=== PATIENT | female | born 1990 | race Caucasian/White ===

== ENCOUNTER 2023-08-17 15:00 | Outpatient (CLI) | payer MEDICAID, SELFPAY ==
[2023-08-17 20:23] LABS: Bacterial Vaginosis* Negative (Negative); Candida glab/krus NOT DETECTED (No Detected); Candida species NOT DETECTED (No Detected); Trichomonas vaginalis NOT DETECTED (No Detected)
== END 2023-08-17 15:01 | disposition home or self-care (01) ==
PROVIDERS: PCP Family Medicine; Visit Provider Obstetrics & Gynecology
DX: R10.2 Pelvic and perineal pain (principal)
CPT/HCPCS: 81513; 87086; 87481; 87661

== ENCOUNTER 2023-10-05 14:50 | Outpatient (CLI) | payer MEDICAID, SELFPAY ==
--- OUTSIDE RECORDS SUMMARY | 2023-10-05 14:55 | XMS_ITS | Clinical Summary ---
Author Name Unknown Organization [facility] Address [address] [place] [address] Care Team Providers Care Cocoa Press Operator Name Role Phone Unavailable Primary Care Provider Unavailabl e Source Comments You are receiving this document as you are listed as the primary care provider,follow-up provider, or the patient has been referred to you for consultation.This is in compliance with the Medicare andMedicaid EHR Incentive Program,which states Providers who transition their patient to another setting of careor provider of care or refers their patient to another provider of care shouldprovide summary care record for each transition of care or referral. [facility] Allergies No known active allergies Medications No known medications Social History Tobacco Use Types Packs/Day Years Used Date Smoking Tobacco: Never Smokeless Tobacco: Never Sex and Gender Information Value Date Recorded Sex Assigned at Not on file Gender Identity Not on file Sexual Orientation Not on file Last Filed Vital Signs Vital Sign Reading Time Taken Comments Blood Pressure 106/52 11/04/2020 6:32 PM CDT Pulse 75 11/04/2020 6:32 PM CDT Temperature 37.2 ??C (98.9 ??F) 11/04/2020 6:32 PM CD T Respiratory Rate 12 11/04/2020 6:32 PM CDT Oxygen Saturation 100% 11/04/2020 6:32 PM CDT Inhaled Oxygen Concentration - - Weight - - Height - - Body Mass Index - - Plan of Treatment Health Maintenance Due Date Last Done Comments Cervical Cancer Screening Due 1992 Hep C Screening (Preventive Services) 1992 HIV Screening (Preventive Services) 2008 Adult Preventive Visit 2010 HepB (1) 2011 COVID-19 Vaccine (3 - 2022-2 4 season) 2023 10/19/2020, 09/28/2020 Influenza (Season Ended) 2024 DTaP/Tdap/Td (2 - Tdap) 04/27/2031 04/27/2021 Zoster/Shingles (1 of 2) 2042 HPV Vaccine Aged Out No longer eligi ble based on patient's age to complete this topic HepA Aged Out No longer eligi ble based on patient's age to complete this topic Hib Aged Out No longer eligi ble based on patient's age to complete this topic IPV (Polio) Aged Out No longer eligi ble based on patient's age to complete this topic MCV4 Aged Out No longer eligi ble based on patient's age to complete this topic Pneumococcal Aged Out No longer eligi ble based on patient's age to complete this topic
== END 2023-10-05 14:51 | disposition home or self-care (01) ==
LOC: NFLDREF 14:53
PROVIDERS: PCP Family Medicine; Visit Provider Obstetrics & Gynecology
DX: R31.9 Hematuria, unspecified (principal)
CPT/HCPCS: 87086

== ENCOUNTER 2023-10-16 15:20 | Outpatient (CLI) | payer MEDICAID, SELFPAY ==
--- OUTSIDE RECORDS SUMMARY | 2023-10-16 15:22 | XMS_ITS | Clinical Summary ---
Author Name Unknown Organization [facility] Address [address], [place] [address] Care Team Providers Care Medical Affairs Specialist Name Role Phone Unavailable Primary Care Provider [...]
== END 2023-10-16 15:21 | disposition home or self-care (01) ==
LOC: NFLDREF 15:20
PROVIDERS: PCP Family Medicine; Visit Provider Obstetrics & Gynecology
DX: R30.0 Dysuria (principal)
CPT/HCPCS: 87086; 87186

== ENCOUNTER 2023-12-25 09:04 | Outpatient (CLI) | payer MEDICAID, SELFPAY ==
--- OUTSIDE RECORDS SUMMARY | 2023-12-25 09:06 | XMS_ITS | Clinical Summary ---
Author Organization [facility] Address [address] [place] [id number] Care Team Providers Care Processing Analyst Name Role Phone Unavailable Primary Care Provider [...] for each transition of care or referral. [facility] All[facility] No known active allergies Medications No [...] 2022-2 4 season) 2023 10/19/2020, 09/28/2020 Influenza (#1) 2024 DTaP/Tdap/Td (2 - Tdap) 04/27/2031 04/27/2021 [...]
[2023-12-25 12:38] LABS: Chlamydia DNA Amplified* NOT DETECTED (No Detected); GC DNA Amplified* NOT DETECTED (No Detected)
== END 2023-12-25 09:05 | disposition home or self-care (01) ==
PROVIDERS: PCP Family Medicine; Visit Provider Obstetrics & Gynecology
DX: B99.9 Unspecified infectious disease (principal)
CPT/HCPCS: 87491; 87591

== ENCOUNTER 2024-01-30 10:30 | Outpatient (CLI) | payer MEDICAID, SELFPAY ==
--- OUTSIDE RECORDS SUMMARY | 2024-02-14 13:29 | XMS_ITS | Clinical Summary ---
Author Organization [employer] [facility] Address [place], [place] [address] Care Team Providers Care Director Television [employer] Name Role Phone John Paul Peterson MD Primary Care Provider + Allergies No known active allergies Medications Medication Sig Dispensed Refills Start Date End Date Status FREESTYLE TEST strip USE TO TEST BLOOD SUGAR QID DIRECTED 02/17/2020 Active vit 28/iron fum/folic (multivitamin folic acid 1 mg)Indications:Dolores stfeeding () Take 1 Tablet by mouth once daily. 30 tablet. 11/15/2020 Active acetaminophen (TYLENOL EXTRA STRGTH) 500 mg tabletIndications:C esarean delivery delivered Take 2 Tablets (1,000 mg) by mouth every 6 hours. Max acetaminophen dose: 4000mg in 24 hrs. 30 Tablet 07/10/2021 Active ibuprofen (ADVIL; MOTRIN) 600 mg tabletIndications:C esarean delivery delivered Take 1 Tablet (600 mg) by mouth every 6 hours. Maximum of 3200 mg in 24 hours. 30 Tablet 07/10/2021 Active 28 mg iron- 800 mcg tab Take 1 Tablet by mouth once daily. 09/13/2021 Active albuterol HFA (PRO-AIR; VENTOLIN; PROVENTIL) 90 mcg/actuation inhalerIndications: Cough, unspecified type Inhale 1-2 Puffs by mouth every 4 hours if needed (cough). 1 Each 03/12/2022 Active dextromethorphan polistirex 30 mg in 5 ml (DELSYM) 30 mg/5 mL liquidIndications:C ough, unspecified type Take 5 mL (30 mg) by mouth every 12 hours if needed for Cough. 150 mL 03/12/2022 Active drospirenone-ethiny l estradioL (HAJA) 3-0.03 mg tablet Take 1 Tablet by mouth once daily. 06/22/2023 Active metFORMIN (GLUCOPHAGE XR) 500 mg Extended-Release tablet 07/12/2023 Active phentermine (ADIPEX-P) 37.5 mg tablet TAKE 1 TABLET(37.5 MG) BY MOUTH EVERY MORNING BEFORE BREAKFAST 07/20/2023 Active ondansetron (ZOFRAN ODT) 4 mg disintegrating tabletIndications:N ausea Place 1 Tablet (4 mg) on the tongue every 8 hours if needed for Nausea/Vomiting. 20 Tablet 07/28/2023 Active fluconazole (DIFLUCAN) 150 mg tabletIndications:Y east infection Take 1 tablet by mouth for 1 dose. May repeat dose in 3 days if symptoms not improving. 2 Tablet 12/24/2023 Active cefadroxil (DURICEF) 500 mg capsuleIndications: Urinary tract infection with hematuria, site unspecified Take 2 Capsules (1,000 mg) by mouth two times daily for 10 days. 40 Capsule 01/11/2024 Active Problems Problem Noted Date Diagnosed Date Gestational diabetes 07/10/2021 delivery delivered 09/13/2019 38 weeks gestation of 09/03/2019 Overview (11/15/2020): Added automatically from request for surgery [id number] Encounters Date Type Department Care Team Description 01/30/2024 Lab Requisition [facility] [phone] Nicolle Ashton MD 01/11/2024 7:47 AM CDT - 01/11/2024 8:51 [place] [address] Christiano Tay MD Urinary tract infection with hematuria, site unspecified (Primary Dx); Suprapubic abdominal pain; Acute bilateral low back pain without sciatica; Dysuria Discharge Disposition: Home Self Care 01/11/2024 Travel 12/26/2023 1:09 AM CDT - 12/26/2023 4:38 AM CDT Emergency [facility] [address] [place] [address] Katiana Evans MD Enteritis (Primary Dx); Abdominal pain, unspecified abdominal location Discharge Disposition: Home Self Care 12/26/2023 Travel 12/24/2023 7:54 AM CDT - 12/24/2023 9:34 AM CDT Emergency [facility] [address] [place] [address] Mikala Chen DO Acute cystitis with hematuria (Primary Dx); Vaginal discharge Discharge Disposition: Home Self Care 12/24/2023 Telephone [facility] [address] [place] [address] Zuleyma Lyman, Formerly [facility] Abnormal Lab Results 12/24/2023 Travel 11/21/2023 9:47 AM CDT - 11/21/2023 11:14 AM CDT Emergency [facility] [address] [place] [address] Kehinde Almonte MD Acute vaginitis (Primary Dx) Discharge Disposition: Home Self Care 11/21/2023 Travel from Last 3 Months Immunizations Name Administration Dates Next Due COVID-19 vaccine ([employer] 30mcg/0.3mL) P F, V 09/28/2020 Family History Relation Name Status Comments Father Alive Mother Alive Social History Tobacco Use Types Packs/Day Years Used Date Smoking Tobacco: Former Smokeless Tobacco: Never Tobacco Cessation:Counseling Given: Yes Alcohol Use Standard Drinks/Week Comments Never 0 (1 standard drink = 0.6 oz pur e alcohol) Sex and Gender Information Value Date Recorded Sex Assigned at Not on file Gender Identity Not on file Sexual Orientation Not on file Obstetrics History Para Term AB IAB SAB Ectopic Multiple Livin g Live Births 2 2 2 0 2 2 Date Outcome GA Total Labor Labor/2nd/3rd Weight Sex Type Anes PTL Rissa A1 A5 Name Clin 2019 Term Livin g 2021 Term 38w 3d 0h 07m 0h 07m 3.08 kg (6 lb 12.6 oz) F C-Sec tion Spinal Livin g 10 10 BG MINI SETH Justi n Carly le, MD Complications:None Delivery Location:Hospital ( [facility] (OR)) Last Filed Vital Signs Vital Sign Reading Time Taken Comments Blood Pressure 108/65 01/11/2024 7:52 AM CDT Pulse 84 01/11/2024 7:52 AM CDT Temperature 37 ??C (98.6 ??F) 01/11/2024 7:52 AM CDT Respiratory Rate 18 01/11/2024 7:52 AM CDT Oxygen Saturation 98% 01/11/2024 7:52 AM CDT Inhaled Oxygen Concentration - - Weight 58.5 kg (129 lb) 01/11/2024 7:52 AM CDT Height 160 cm (5' 3) 01/11/2024 7:52 AM CDT Body Mass Index 22.85 01/11/2024 7:52 AM CDT Plan of Treatment Health Maintenance Due Date Last Done Comments Tdap 2003 Depression screening for age 12+ 2004 BMI (ht and wt on same day) for age 18+ 2010 Hepatitis C screening for ag e 18-79 2010 Tetanus booster 2012 COVID-19 vaccine series (2022- season) 2024 10/19/2020, 09/28/2020 Influenza for age 9-49 01/27/2024 Pap test for age 21-65 01/29/2027 , 01/30/2024 HIV for age 15-65 Completed 12/01/2020 Pneumococcal series for age 6-64 Aged Out No longer eligible b ased on patient's age to complete this topic Procedures Procedure Name Priority Date/Time Associated Diagnosis Comments LAB TRACKING EVENT Routine 01/30/2024 10 :30 AM CDT EXPORT SALES MANAGER THIN PREP PAP SCREEN IMAGED Routine 01/30/2024 10:30 AM CDT HPV HIGH RISK Routine 01/30/2024 10:30 AM CDT URINE ASHIA 01/11/2024 7:56 AM CDT URINALYSIS MICROSCOPIC STAT 01/11/2024 7:56 AM CDT UA W/ SEDIMENT EXAM REFLEXED PER CRITERIA STAT 01/11/2024 7:56 AM CDT LACTATE VENOUS Today 12/26/2023 3:[address] ABDOMEN PELVIS W STAT 12/26/2023 3 :23 AM CDT C-REACTIVE PROTEIN ASHIA 12/26/2023 2: 53 AM CDT LIPASE STAT 12/26/2023 2:53 AM CDT HEPATIC FUNCTION PANEL STAT 12/26/2023 2:53 AM CDT BASIC METABOLIC PANEL STAT 12/26/2023 2:53 AM CDT CBC W PLT NO DIFF STAT 12/26/2023 2:5 3 AM CDT TRICHOMONAS, KODAK, AND BACTERIAL VAGINOSIS BY DOREEN STAT 12/24/2023 8:47 AM CDT URINE CULTURE ASHIA 12/24/2023 8:12 AM CDT URINE ASHIA 12/24/2023 8:12 AM CDT URINALYSIS MICROSCOPIC STAT 12/24/2023 8:12 AM CDT UA W/ SEDIMENT EXAM REFLEXED PER CRITERIA STAT 12/24/2023 8:12 AM CDT GC CHLAMYDIA TRACH PROBE STAT 11/21/2023 10:26 AM CDT URINALYSIS MICROSCOPIC STAT 11/21/2023 9:51 AM CDT URINE ASHIA 11/21/2023 9:51 AM CDT UA W/ SEDIMENT EXAM REFLEXED PER CRITERIA STAT 11/21/2023 9:51 AM CDT HIV EXTERNAL Routine 12/01/2020 from Last 3 Months or Most Recently Relevant to Health Maintenance Results * LAB TRACKING EVENT (01/30/2024 10:30 AM CDT) Other (Other) Client Collect / Unknown 01/30/2024 10:30 AM CDT 01/30/2024 5:17 PM CDT Nicolle Ashton MD LAB BILL ONLY [facility] [address] [place] [address], * (ABNORMAL) EXPORT SALES MANAGER THIN PREP PAP SCREEN IMAGED (01/30/2024 10:30 AM CDT) Case Report Gynecologic Cytology Report ? Case: [id number] ? Authorizing Provider: ??Nicolle Ashton MD ??Collected: ? 01/30/2024 1030 ? Ordering Location: ? [facility] ?Received: ?02/01/2024 1706 ? First Screen: ?David, Antelmo ? Pathologist: ? Miracle Moreau MD ? Specimen: ?EXPORT SALES MANAGER ThinPrep Vial Screening, Cervical ? 02/13/2024 5:30 PM CDT [facility] INTERPRETATION/ RESULT ATYPICAL SQUAMOUS CELLS OF UNDETERMINED SIGNIFICANCE (ASCUS)(A) (none) 02/13/2024 5:30 PM CDT [facility] IMEN ADEQUACY Satisfactory for evaluation Endocervical component present 02/13/2024 5:30 PM CDT [facility] HPV REQUEST HPV and PAP 02/13/2024 5:30 PM CDT [facility] Date of LMP 01/25/2024 02/13/2024 5:30 PM CDT [facility] Last Pap Date 12/20/2023 02/13/2024 5:30 PM CDT [facility] Last Pap Result ASCUS 5:30 PM CDT [facility] Abnormal Pap or [place] Bx in last 5 years Yes 02/13/2024 5:30 PM CDT [facility] Menstrual Status Regular Periods 02/13/2024 5:30 PM CDT [facility] [place] Bx Done Today No 02/13/2024 5:30 PM CDT [facility] Additional Information 02/13/2024 5:30 PM CDT [facility] Comment: Interpreted at [facility] - [address], [place] [address] Automated Review Successful 02/13/2024 5:30 PM CDT [facility] Comment:Specimen processed s uccessfully by automated filter machine operator device, ThinPrep Imaging System, [employer] ANCILLARY TESTING EXPORT SALES MANAGER HPV Ordered, Please see separate report 02/13/2024 5:30 PM CDT [facility] Note The pap test is a screening technique, not a diagnostic procedure. It is used primarily to screen for squamous cancers and precursor lesions. Published studies have shown that it is subject to both false negative and false positive results. The pap test should not be used as the sole means to diagnose or exclude pre-malignant and malignant lesions. 02/13/2024 5:30 PM CDT [facility] Other (Cervical) 01/30/2024 10:30 AM CDT 02/01/2024 5:06 PM CDT Nicolle Ashton MD PATHOLOGY/CYTOLO GY Performing Organization Address [facility]/ZIP Co de Phone Number [facility] [address] [place] [address], * (ABNORMAL) HPV HIGH RISK (01/30/2024 10:30 AM CDT) TYPE 16 Negative Negative 02/05/2024 11:26 AM CDT [facility] TYPE 18 Negative Negative 02/05/2024 11:26 AM CDT [facility] OTHER HIGH RISK TYPES Positive(A) Negative 02/05/2024 11:26 AM CDT [facility] Other (Cervical) 01/30/2024 10:30 AM CDT 02/01/2024 5:06 PM CDT Narrative [facility] - 02/05/2024 11:26 AM CDT Specimen is positive for the DNA of any one of, or combination of, the following high risk HPV types: 31, 33, 35, 39, 45, 51, 52, 56, 58, 59, 66, 68. HPV types 16 and 18 DNA were undetectable or below the pre-set threshold. ? Methodology: Hailo Sandro 4800 HPV Test Nicolle Ashton MD MICROBIOLOGY [facility] [address] [place] [address], * (ABNORMAL) URINALYSIS MICROSCOPIC (01/11/2024 7:56 AM CDT) Only the most recent of3 resultswithin the time period is included. RBC >100(A) 0-2, None Seen /HPF 01/11/2024 8:20 AM T [facility] WBC 51-100(A) 0-2, 3-5, None Seen /HPF 01/11/2024 8:20 AM [facility] BACTERIA Few None Seen, Rare, Few Bacteria/ HPF 01/11/2024 8:20 AM [facility] EPITHELIAL CELLS Few None Seen, Few Epi/HPF 01/11/2024 8:20 AM [facility] Mucus Present 01/11/2024 8:20 AM [facility] Urine URINE SPECIMEN / Unknown Non-Blood / Unknown 01/11/2024 7:56 AM CDT 01/11/2024 7:59 AM CDT Spencer Cat MD URINE [facility] [address] [place] [address] [id number] * (ABNORMAL) UA W/ SEDIMENT EXAM REFLEXED PER CRITERIA (01/11/2024 7:56 AM CDT) Only the most recent of3 resultswithin the time period is included. COLOR Yellow Yellow Color 01/11/2024 8:19 AM T [facility] CLARITY Turbid(A) Clear Clarity 01/11/2024 8:19 AM [facility] SPECIFIC GRAVITY,URINE 1.025 1.010, 1.015, 1.020, 1.025 01/11/2024 8:19 AM [facility] PH,URINE 6.5 6.0, 7.0, 8.0, 5.5, 6.5, 7.5, 8.5 01/11/2024 8:19 AM CDT [facility] UROBILINOGEN, QUALITATIVE Normal Normal EU/dl 01/11/2024 8:19 AM [facility] PROTEIN, URINE 100(A) Negative mg/dL 01/11/2024 8:19 AM T [facility] GLUCOSE, URINE Negative Negative mg/dL 01/11/2024 8:19 AM [facility] KETONES,URINE Negative Negative mg/dL 01/11/2024 8:19 AM T [facility] BILIRUBIN,URI NE Negative Negative 01/11/2024 8:19 AM [facility] OCCULT BLOOD,URINE Large(A) Negative 01/11/2024 8:19 AM [facility] NITRITE Negative Negative 01/11/2024 8:19 AM [facility] LEUKOCYTE ESTERASE Moderate(A) Negative 01/11/2024 8:19 AM [facility] Urine URINE SPECIMEN / Unknown Non-Blood / Unknown 01/11/2024 7:56 AM CDT 01/11/2024 7:59 AM CDT Spencer Cat MD URINE [facility] [address] [place] [address] * URINE (01/11/2024 7:56 AM CDT) Only the most recent of3 resultswithin the time period is included. ,URIN E Negative Negative 01/11/2024 8:32 AM T [facility] Urine URINE SPECIMEN / Unknown Non-Blood / Unknown 01/11/2024 7:56 AM CDT 01/11/2024 7:59 AM CDT Christiano Tay MD URINE [facility] [address] [place] [address] * LACTATE VENOUS (12/26/2023 3:52 AM CDT) LACTATE,VENOUS 0.9 0.5 - 2.0 mmol/L 12/26/2023 4:13 AM CDT [facility] Blood BLOOD SPECIMEN / Unknown Venipuncture / Unknown 12/26/2023 3:52 AM CDT 12/26/2023 3:55 AM CDT Katiana Evans MD CHEMISTRY [facility] [address] [place] [address] * CT ABDOMEN PELVIS W (12/26/2023 3:23 AM CDT) Anatomical Region Laterality Modality Abdomen, Pelvis, AORTA, LIVER, SPLEEN Computed Tomography 12/26/2023 3:40 AM CDT Narrative 12/26/2023 3:40 AM CDT For Patients: ??As a result of the Century Cures Act, medical imaging exams and procedure reports are released immediately into your electronic medical record. ??You may view this report before your referring provider. ??If you have questions, please contact your health care provider. INDICATION: Abdominal pain TECHNIQUE: CT Abdomen and pelvis with i.v. contrast. Coronal and sagittal reformats were obtained. CONTRAST: 100 mL Omnipaque 300 COMPARISON: 08/02/2023 FINDINGS: Lower chest: Unremarkable. Liver: A small hypodense lesion is present within the right anterior segment of the liver measuring 1 cm. It has a small central focus of increased density. Spleen: Unremarkable. Pancreas: Unremarkable. Gallbladder: Unremarkable. Kidney: There is a cyst in the upper pole of the right kidney measuring 1.2 cm. Adrenal: Unremarkable. Bowel: Moderate concentric wall thickening with target enhancement is seen within the small bowel loops in the midabdomen. The appendix is normal in appearance and size. Vascular: There is normal enhancement of the celiac, SMA and ADRIAN. The SMV and portal vein are unremarkable. Lymph: Numerous small subcentimeter mesenteric lymph nodes are present. Peritoneum: Unremarkable. No pneumoperitoneum is seen. A small amount of abdominal ascites is noted. Pelvis: Unremarkable. Soft tissue: Unremarkable. Bone: Unremarkable for age. IMPRESSIONS: 1. Moderate concentric wall thickening with target enhancement is seen within the small bowel loops in the midabdomen. The appearance is nonspecific and can be seen in a number of conditions including inflammatory bowel disease, infectious enteritis, vasculitis or DARIUS inhibitor related angioedema. Small-bowel ischemia can be considered in the appropriate clinical context. 2. A small amount of abdominal ascites is noted. 3. A small hypodense lesion is present within the right anterior segment of the liver measuring 1 cm. It has a small central focus of increased density. This may represent a small hemangioma but confirmation with MRI evaluation is recommended especially if the patient has a history of chronic liver disease or primary malignancy. Dictated by Austin Ernandez MD @ 12/26/2023 3:40:42 AM Please note that all CT scans at this facility use dose modulation, iterative reconstruction, and/or weight-based dosing when appropriate to reduce radiation dose to as low as reasonably achievable. Dictated by: Austin Ernandez MD @ 12/26/2023 03:40:49 (Electronically Signed) Procedure Note Austin Ernandez MD - 12/26/2023 For Patients: As a result of the Century Cures Act, medical imagingexams and procedure reports are released immediately into your electronicmedical record. You may view this report before your referring provider.If you have questions, please contact your health care provider. INDICATION: Abdominal pain TECHNIQUE: CT Abdomen and pelvis with i.v. contrast. Coronal and sagittalreformats were obtained. CONTRAST: 100 mL Omnipaque 300 COMPARISON: 08/02/2023 FINDINGS: Lower chest: Unremarkable. Liver: A small hypodense lesion is present within the right anteriorsegment of the liver measuring 1 cm. It has a small central focus ofincreased density. Spleen: Unremarkable. Pancreas: Unremarkable. Gallbladder: Unremarkable. Kidney: There is a cyst in the upper pole of the right kidney measuring1.2 cm. Adrenal: Unremarkable. Bowel: Moderate concentric wall thickening with target enhancement is seenwithin the small bowel loops in the midabdomen. The appendix is normal inappearance and size. Vascular: There is normal enhancement of the celiac, SMA and ADRIAN. The SMVand portal vein are unremarkable. Lymph: Numerous small subcentimeter mesenteric lymph nodes are present. Peritoneum: Unremarkable. No pneumoperitoneum is seen. A small amount ofabdominal ascites is noted. Pelvis: Unremarkable. Soft tissue: Unremarkable. Bone: Unremarkable for age. IMPRESSIONS: 1. Moderate concentric wall thickening with target enhancement is seenwithin the small bowel loops in the midabdomen. The appearance isnonspecific and can be seen in a number of conditions includinginflammatory bowel disease, infectious enteritis, vasculitis or ACEinhibitor related angioedema. Small-bowel ischemia can be considered inthe appropriate clinical context. 2. A small amount of abdominal ascites is noted. 3. A small hypodense lesion is present within the right anterior segmentof the liver measuring 1 cm. It has a small central focus of increaseddensity. This may represent a small hemangioma but confirmation with MRIevaluation is recommended especially if the patient has a history ofchronic liver disease or primary malignancy. Dictated by Austin Ernandez MD @ 12/26/2023 3:40:42 AM Please note that all CT scans at this facility use dose modulation,iterative reconstruction, and/or weight-based dosing when appropriate toreduce radiation dose to as low as reasonably achievable. Dictated by: Austin Ernandez MD @ 12/26/2023 03:40:49 (Electronically Signed) Katiana Evans MD CT * CBC W PLT NO DIFF (12/26/2023 2:53 AM CDT) WHITE BLOOD COUNT 10.2 4.5 - 11.0 thou/cu mm 12/26/2023 2:59 AM CDT [facility] RED BLOOD COUNT 4.35 4.00 - 5.20 mil/cu mm 12/26/2023 2:59 AM CDT [facility] HEMOGLOBIN 13.0 12.0 - 16.0 g/dL 12/26/2023 2:59 AM CDT [facility] HEMATOCRIT 38.8 33.0 - 51.0 % 12/26/2023 2:59 AM [facility] MCV 89 80 - 100 fL 12/26/2023 2:59 AM T [facility] MCH 29.9 26.0 - 34.0 pg 12/26/2023 2:59 AM [facility] MCHC 33.5 32.0 - 36.0 g/dL 12/26/2023 2:59 AM CDT [facility] RDW 13.4 11.5 - 15.5 % 12/26/2023 2:59 AM CDT [facility] PLATELET COUNT 257 140 - 440 thou/cu mm 12/26/2023 2:59 AM CDT [facility] MPV 10.7 6.5 - 11.0 fL 12/26/2023 2:59 AM CDT [facility] Blood BLOOD SPECIMEN / Unknown Venipuncture / Unknown 12/26/2023 2:53 AM CDT 12/26/2023 2:55 AM CDT Katiana Evans MD HEMATOLOGY Performing Organization Address [facility]/ZIP Co de Phone Number [facility] [address] [place] [address] * (ABNORMAL) C-REACTIVE PROTEIN (12/26/2023 2:53 AM CDT) C-REACTIVE PROTEIN 4.8(H) <0.5 mg/dL 12/26/2023 4:12 AM CDT [facility] Blood BLOOD SPECIMEN / Unknown Venipuncture / Unknown 12/26/2023 2:53 AM CDT 12/26/2023 2:55 AM CDT Katiana Evans MD CHEMISTRY [facility] [address] [place] [address] * LIPASE (12/26/2023 2:53 AM CDT) LIPASE 23.0 13.0 - 60.0 IU/L 12/26/2023 3:15 AM CDT [facility] Blood BLOOD SPECIMEN / Unknown Venipuncture / Unknown 12/26/2023 2:53 AM CDT 12/26/2023 2:55 AM CDT Katiana Evans MD CHEMISTRY [facility] [address] [place] [address] * (ABNORMAL) HEPATIC FUNCTION PANEL (12/26/2023 2:53 AM CDT) ALBUMIN 3.6(L) 4.0 - 4.9 g/dL 12/26/2023 3:17 AM CDT [facility] PROTEIN,TOTAL 6.4 6.0 - 8.0 g/dL 12/26/2023 3:17 AM CDT [facility] BILIRUBIN,TOTAL 0.2 0.0 - 1.2 mg/dL 12/26/2023 3:17 AM CDT [facility] BILIRUBIN,DIRECT <0.2 0.0 - 0.3 mg/dL 12/26/2023 3:17 AM CDT [facility] BILIRUBIN,INDIRE CT 12/26/2023 3:17 AM T [facility] Comment:Unable to calculate, Direct Bili <0.2 ALK PHOSPHATASE 53 35 - 104 IU/L 12/26/2023 3:17 AM T [facility] ALT (SGPT) <5(L) 10 - 35 IU/L 12/26/2023 3:17 AM T [facility] AST (SGOT) 14 10 - 35 IU/L 12/26/2023 3:17 AM T [facility] Blood BLOOD SPECIMEN / Unknown Venipuncture / Unknown 12/26/2023 2:53 AM CDT 12/26/2023 2:55 AM CDT Katiana Evans MD CHEMISTRY [facility] [address] [place] [address] * (ABNORMAL) BASIC METABOLIC PANEL (12/26/2023 2:53 AM CDT) SODIUM 137 136 - 145 mmol/L 12/26/2023 3:15 AM [facility] POTASSIUM 4.0 3.5 - 5.1 mmol/L 12/26/2023 3:15 AM [facility] CHLORIDE 105 98 - 107 mmol/L 12/26/2023 3:15 AM [facility] CO2,TOTAL 24 22 - 29 mmol/L 12/26/2023 3:15 AM [facility] ANION GAP 8 5 - 18 12/26/2023 3:15 AM [facility] GLUCOSE 202(H) 70 - 99 mg/dL 12/26/2023 3:15 AM [facility] CALCIUM 8.8 8.6 - 10.0 mg/dL 12/26/2023 3:15 AM [facility] BUN 9 6 - 20 mg/dL 12/26/2023 3:15 AM [facility] CREATININE 0.52 0.50 - 0.90 mg/dL 12/26/2023 3:15 AM [facility] BUN/CREAT RATIO 17 10 - 20 3:15 AM [facility] eGFR >90 >90 mL/min/1.7 3m2 12/26/2023 3:15 AM [facility] Comment:As of 2021, eG FR is calculated by the CKD-EPI creatinine equation without race adjustment. ??eGFR can be influenced by muscle mass, exercise, and diet. ??The reported eGFR is an estimation only and is only applicable if the renal function is stable. Blood BLOOD SPECIMEN / Unknown Venipuncture / Unknown 12/26/2023 2:53 AM CDT 12/26/2023 2:55 AM CDT Katiana Evans MD CHEMISTRY [facility] [address] [place] [address] * (ABNORMAL) TRICHOMONAS, KODAK, AND BACTERIAL VAGINOSIS BY DOREEN (12/24/2023 8:47 AM CDT) KODAK SPECIES Positive(A) Negative 12/24/19 5:45 PM CDT [facility] KODAK GLABRATA Negative Negative 12/24/2023 5:45 PM CDT [facility] TRICHOMONAS VVA Negative Negative 5:45 PM CDT [facility] BACTERIAL VAGINOSIS Negative Negative 12/24/2023 5:45 PM CDT [facility] Other VAGINAL SWAB / Unknown Non-Blood / Unknown 12/24/2023 8:47 AM CDT 12/24/2023 8:51 AM CDT Mikala Sorenson DO MICRO BIOLOGY [facility] [address] [place] [address], * (ABNORMAL) URINE CULTURE (12/24/2023 8:12 AM CDT) CULTURE RESULT(A) 12/26/2023 6:45 AM CDT [facility] CULTURE 50,000-100,000 CFU/mL Escherichia coli 12/26/2023 6:45 AM CDT [facility] CULTURE <10,000 CFU/mL Multiple organisms probable contaminants 12/26/2023 6:45 AM CDT [facility] Urine URINE SPECIMEN / Unknown Non-Blood / Unknown 12/24/2023 8:12 AM CDT 12/24/2023 8:16 AM CDT Narrative Organism Antibiotic Method Susceptibility Escherichia coli TRIMETHOPRIM/SULF <=1/19: S Escherichia coli AMPICILLIN >=32: R Escherichia coli CEFAZOLIN 2: S Escherichia coli CEFAZOLIN-UC 2: S Comment:Cefazolin-UC interpretations are for therapy of uncomplicated UTIs due to E.coli, K.pneumoniae, or P.mirablis. Cefazolin breakpoint is used as a surrogate to predict results for the oral agents - cefdinir, cefuroxime, and cephalexin, when used for therapy of uncomplicated UTIs due to E coli, K, pneumoniae, and P. mirabilis. The FDA recommends cefadroxil susceptibility can be deduced from cefazolin. Escherichia coli GENTAMICIN <=1: S Escherichia coli CEFTRIAXONE <=0.25: S Escherichia coli CEFTAZIDIME <=0.5: S Escherichia coli LEVOFLOXACIN <=0.12: S Escherichia coli CIPROFLOXACIN <=0.06: S Escherichia coli PIPERACILLIN/TAZO 8: S Escherichia coli AMPICILLIN/SULBACTAM >=32: R Escherichia coli CEFEPIME <=0.12: S Escherichia coli MEROPENEM <=0.25: S Escherichia coli NITROFURANTOIN <=16: S Mikala Sorenson DO MICRO BIOLOGY [facility] [address] [place] [address], * GC CHLAMYDIA TRACH PROBE (11/21/2023 10:26 AM CDT) CHLAMYDIA PROBE Negative 4:55 AM CDT [facility] N GONORRHOEAE PROBE Negative 11/22/2023 4:55 AM CDT [facility] Other VAGINAL SWAB / Unknown Non-Blood / Unknown 11/21/2023 10:26 AM CDT 11/21/2023 10:30 AM CDT Kehinde Almonte MD MICROBIOLOGY [facility] [address] [place] [address], * HIV EXTERNAL (12/01/2020) EXTERNAL HIV Negative [facility] Blood BLOOD SPECIMEN / Unknown John Paul Peterson MD LABORATORY [facility] [address] [place] [address], from Last 3 Months or Most Recently Relevant to Health Maintenance Advance Directives * Full Code (Latest Code Status on File) Date Activated Date Inactivated Comments 07/08/2021 8:45 AM 07/10/2021 3:52 PM Question Answer Comments Code Status Discussion: Reviewed Preferences * Full Code Date Activated Date Inactivated Comments 07/08/2021 6:07 AM 07/08/2021 8:45 AM Question Answer Comments Code Status Discussion: Reviewed Preferences Care Teams Director Television News Relationship Specialty Start Date End Date John Paul Peterson MD [address] [place], [place] [address] [address] PCP - General Obstetrics and Gynecology 12/24/23
--- OUTSIDE RECORDS SUMMARY | 2024-02-14 13:30 | XMS_ITS | Data Portability ---
Author Organization [employer] [employer], [id number] Address [address] [place] [address] Assessment Encounter Date Assessment Date Assessment LastModified by Organization Details LastModified Time 05/03/2020 05/03/2020 >50% of the visit was spent in consultation or coordination of care. Total time spent was 15 minutes. Her interpreted for the visit. [email or web address] Not available 05/09/2020 20:33:12 09/07/2020 09/07/2020 Total time spent in reviewing patient's history and outside records, discussion of patient's concerns, examination, interpreting test results, ordering additional tests, counseling with shared decision making, sending prescriptions and documentation was 20 minutes. [email or web address] Not available 09/07/2020 18:52:35 Plan of Treatment Reminders Order Date Submit Date Provider Last Modified By Organization Details Last Modified Time Details Appointments None recorded. Lab None recorded. Referral None recorded. Procedures None recorded. Surgeries None recorded. Imaging US, saline infused uterus 020 020 [email or web address] [email or web address] [email or web address]_rome, [address], [address], [place], [address], 0 19:22:51 Medication Orders None recorded. Patient TargetsNo targets recorded. Patient Instructions Encounter Date Encounter Id Patient Instructions Last Modified By Organization Details Last Modified Time 05/03/2020 [id number] Followup with [facility] to discuss uterine septum resection. [email or web address] Not available 05/09/2020 20:35:32 Reason for Referral None Reported. Results Created Date Observation Date Name Description Value Unit Range Abnormal Flag Note LastModifiedBy Organization Detail LastModifiedTime 05/03/20 20 US, salin e infus ed uteru s No observ ation record ed. mariahl Evel[address], [place], [address], 05/04/2020 11:14:22 Result Notes None recorded. 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 Procedures Surgical History Date Name Laterality Status Provider Name and Address Organization Details Recorded Time 0 section completed [facility] 09/07/2020 15:04:39 9 Date of Last [facility] 03/16/2020 07:47:49 non-surgical breast biopsy completed Not Available [facility] 01/05/2020 01:04:48 cerclage completed Not Available [facility] 01:04:48 Imaging Results Imaging Date Name Status LastModified by Organiz ation Details LastModified Time 05/03/2020 US, saline infused uterus completed [email or web address] [address], [place], [address], 05/04/2020 11:14:22 Procedure Notes None recorded. Medical Equipment None Reported. Allergies No known drug allergies Medications Name Sig Start Date Stop Date Status Note LastModified by Organization Details LastModified Time acetaminoph en 325 mg tablet 09/07 completed Not Available Not Available Not Available triamcinolo ne acetonide 0.1 % topical cream APPLY TO THE AFFECTED AREA 1 TO TWO TIMES DAILY. FOR UP 14 DAYS. THEN NEEDED FOR FLARES. 09/07 completed Not Available Not Available Not Available Mi-Acid Gas Relief (simethicon e) 80 mg chewable tablet 09/07 completed Not Available Not Available Not Available cephalexin 500 mg capsule TAKE 1 CAPSULE BY MOUTH TWICE DAILY FOR 5 DAYS 09/07 completed Not Available Not Available Not Available ibuprofen 600 mg tablet 09/07 completed Not Available Not Available Not Available oxycodone 5 mg tablet 09/07 completed Not Available Not Available Not Available Vitamin 27 mg iron-0.8 mg tablet TAKE 1 TABLET BY MOUTH EVERY DAY active Not Available Not Available No t Available Carmen 0.35 mg tablet TAKE 1 TABLET BY MOUTH EVERY DAY 2020 active Not Available Not Available Not Avai lable cyclobenzap rine 5 mg tablet TK 1 T PO PRF SEVERE BACK SPASM 09/07 completed Not Available Not Available Not Available Senna Plus 8.6 mg-50 mg tablet 09/07 completed Not Available Not Available Not Available TRUEplus Ketone strips TEST ONCE IN THE MORNING FOR 1 WEEK THEN ONCE PER WEEK 09/07 completed Not Available Not Available Not Available Accu-Chek Guide test strips USE TO TEST BLOOD SUGARS FOUR TIMES DAILY OR DIRECTED 03/16 completed Not Available Not Available Not Available Accu-Chek Fastclix Lancet Drum USE TO TEST BLOOD SUGARS QID OR DIRECTED 09/07 completed Not Available Not Available Not Available FreeStyle Humphrey 14 Day Brickeys USE DIRECTED 09/07 completed Not Available Not Available Not Available FreeStyle Humphrey 14 Day Sensor kit UTD 09/07 completed Not Available Not Available Not Available Vitals Date Recorded Body weight Body mass index (BMI) Body height Systolic blood pressure Diastolic blood pressure Provider Name and Address Organization Details Last Updated DateTime 09/07/2020 55695.71 g 23.9 kg/m2 152.4 cm 96 mm[Hg] 64 mm[Hg] Kari Jain [employer] 17:12:05 Social History Question Answer Notes LastModified by Organizat ion Details LastModified Time Tobacco Smoking Status Never Smoker Not Available [facility] 01/05/2020 14:02:02 What Is Your Level Of Alcohol Consumption? None Information not available 01/05/2020 What Is Your Level Of Caffeine Consumption? Moderate Current Every Day Information not available 01/05/2020 Which Illicit Or Recreational Drugs Have You Used? Denies Illicit Substance Abuse [email or web address] Information not available 09/07/2020 History Of Domestic Violence No Denies All Domestic Violence [email or web address] Information not available 01/05/2020 Marital Status zarina Informati on not available 01/05/2020 Sex: Unknown Functional Status Question Answer Note LastModified by Organizat ion Details LastModified Time What is your exercise level? Moderate Moderate Amount of Exercise (1-3 times weekly) [email or web address] Information not available 01/05/2020 Mental Status None recorded. Family History Nothing Reported. Medical History Condition Response GI- Hemorrhoids Endocrinology- History of Gestational Di abetes Gynecological History Statement/Question Response History of Gestational Diabetes Yes Date of Last Pap Smear 04/03/2019 Date of LMP 08/21/2020 Obstetrics History GPAL:G 1 P 1 0 0 1 Type Value Multiple Births 0 Full Term 1 Induced 0 Spontaneous 0 Premature 0 Living 1 Ectopics 0 Total 1 Immunizations Vaccine Type Date Status Provider Name and Address Organization Details Recorded Time Tdap 07/29/2019 completed Not Available [facility] 01:10:36 Influenza, split virus, quadrivalent, PF 07/29/2019 completed Not Available [facility] 01/05/2020 01:10:36 Past Encounters Encounter ID Performer Location Encounter Start Date Encounter Closed Date Diagnosis/Indication Diagnosis SNOMED-CT Code Diagnosis ICD10 Code [id number] EARLINE ARZOLA MD [id number] [facility] [place] [address] [address] [place] [address] 05/03/2020 16:00:57 05/03/2020 17:10:46 Congenital uterine anomaly 76899013 Q51.9 [id number] EARLINE ARZOLA MD [id number] [facility] [place] [address] [address] [place] [address] 05/03/2020 15:57:38 05/03/2020 17:10:22 Congenital uterine anomaly 72131999 Q51.9 [id number] EARLINE ARZLOA MD [id number] [facility] ,[address] [place] [address] 09/07/2020 16:39:56 09/08/2020 09:12:26 Congenital uterine anomaly 30584437 Q51.9 Surgical i ncision wound of skin 0864384011 00 R23.8 Health Concerns Section Related Observation LastModified by Organization Detai ls LastModified Time None Recorded Concern Status LastModified by Organization Details LastModified Time None Recorded Advance Directives Directive None Recorded Payers Encounter Date Sequence Insurance Name Policy Number Policy Calhoun Covered Member ID Calhoun Member ID Guarantor Name 05/03/2020 1 [facility] [id number] [facility]hbi Chebli [id number] [facility] Mhadbhi Chebli 05/03/2020 1 [facility] [id number] Rib M Mhadhbi Chebli [id number] Rib Mhadbhi Chebli 09/07/2020 1 [facility] [id number] Rib M Mhadhbi Chebli [id number] Rib Mhadbhi Chebli Notes Date Note Type Note Provider Name and Address Organization Details Recorded Time 05/03/2020 text/html HPI Notes: Fely marina presents today for a sonohysterogram. She is s/p primary C/S for breech presentation at 38 weeks on 09/13/2019. She started her and care in [facility]. There, she was told she had a uterine anomaly, and a first trimester cevical cerclage was placed. This was removed at 36 weeks during her . Her was complicated by A1GDM. She now presents to assess 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 Delivered 08/2019 via primary c/s for breech. Uncomplicated recovery. She reports that the incision feels numb and weird to the touch, though is not actually tender or painful. It's most noticeable when she touches it or she is exercising. No drainage, redness or tingling. She had a sonohyst here in April to evaluate for uterine anomaly. A large septum was noted. Referral was given to [facility] for resection, but the patient and her state they had a lot of barriers to scheduling an appt there and it was going to be very expensive. They are interested in trying again for and wonder if another cerclage (had one placed in in [place]) would be a better [place]. [place] [address] [facility],[address], [place], [address], [place] [facility] [employer] 09/07/2020 18:52:50 OBGyn Episode Ob Episode Information Episode Created Date Number of Fetuses Patient Bloodtype Patient rh Status Prepregnancy Weight lbs Domestic Partner Domestic Partner Phone Father Name Physical Therapy Technician Status 03/16/20 20 1 CLOSED Fetus Data First Name Last Name Admitted to NICU Weight (g) Sex Living Outcome Pediatric Complications Fetus ID Race Codes Race Delivery Type F Full Term [id number] Gary Calculation Initial Gary Date Initial Exam Date Initial Exam Provider Initial Ultrasound Date Last Menstrual Period Date Ultra Sound Weeks Gestation 0 Eighteen To Twenty Week Gary Update Ultra Sound Date Fundal Height At Umbil Quickening Date Ultra Sound Latest Weeks Gestation Final Gary Confirmed By Final Gary Confirmed Date Final Gary Date Ultra Sound Latest Days Gestation 0 0 Menstrual History Last Menstrual Date Menses Monthly On Bcp Conception Prior Menses Frequency Hcg Plus Date Menarche Onset Age Delivery Information Delivery Date Delivery Type Labor Anesthesia Weeks Gestation Incision Type Labor Labor Length Hrs Delivered By Post Complications Tubal Sterilization Discharge Date Comments 0 [facility] 38 Breech, GDMA1 -Dr Ferguson Discharge Information Feeding Method Contraceptive Method Maternal HG B and HCT Levels
--- OUTSIDE RECORDS SUMMARY | 2024-02-14 13:30 | XMS_ITS | Clinical Summary ---
Author Organization [facility] Address [address] [place] [address] Care Team Providers Care Business Programmer Name Role Phone Unavailable Primary Care Provider [...] for each transition of care or referral. [facility] Allergies No known active allergies Medications No [...] 1992 Hep C Screening (Preventive Services) 1992 MTM Covered 1992 HIV Screening (Preventive Services) 2008 Adult Preventive Visit 2010 HepB (1) 2011 COVID-19 Vaccine (2023-2 5 season) 2024 10/19/2020, 09/28/2020 Influenza (#1) 2024 DTaP/Tdap/Td (2 [...]
== END 2024-01-30 10:31 | disposition home or self-care (01) ==
LOC: NFLDREF 02-14 13:28
PROVIDERS: PCP Family Medicine; Referring Provider Family Medicine; Visit Provider Obstetrics & Gynecology
DX: Z12.4 Encounter for screening for malignant neoplasm of cervix (principal); R87.610 Atypical squamous cells of undetermined significance on cytologic smear of cervix (ASC-US)
CPT/HCPCS: 87624

== ENCOUNTER 2025-01-23 10:45 | Outpatient (CLI) | payer BC, SELFPAY ==
[2025-01-23 13:08] LABS: Chlamydia DNA Amplified* NOT DETECTED (No Detected); GC DNA Amplified* NOT DETECTED (No Detected)
[2025-01-24 23:56] LABS: HPV Source Cervix
[2025-01-25 09:12] LABS: HPV Genotype 16 by TMA Not Detected; HPV Genotype 18/45 by TMA Not Detected
[2025-01-30 16:40] LABS: Pap Test Digital Imaging Done; Pap Test Reviewed by Pathologi Done
== END 2025-01-23 10:46 | disposition home or self-care (01) ==
PROVIDERS: PCP Family Medicine; Visit Provider Obstetrics & Gynecology
DX: R10.9 Unspecified abdominal pain (principal); R87.610 Atypical squamous cells of undetermined significance on cytologic smear of cervix (ASC-US); Z12.4 Encounter for screening for malignant neoplasm of cervix; Z11.51 Encounter for screening for human papillomavirus (HPV); Z11.3 Encounter for screening for infections with a predominantly sexual mode of transmission
CPT/HCPCS: 87491; 87591; 87624; 87625; 88141; 88142; 88175